=== PATIENT | female | born 1985 | race Hispanic/Latino ===

== ENCOUNTER 2021-04-04 11:01 | Emergency (ER) | payer BC ==
[~2021-04-04] VITALS: Ht 160 cm; Wt 108.9 kg
[2021-04-04 12:04] LABS: BASOPHILS # (AUTO) 0.1 (0.0-0.1); BASOPHILS % 0.9 % (0.0-1.0); EOSINOPHILS # (AUTO) 0.4 (0.0-0.4); EOSINOPHILS % 3.9 % (0.0-6.0); HEMOGLOBIN 13.7 g/dL (12.0-16.0); LYMPHOCYTES # (AUTO) 3.3 (1.0-3.2); LYMPHOCYTES % 32.8 % (18.0-39.1); MEAN CORPUSCULAR HGB CONC 30.4 g/dL (31-35); MONOCYTES # (AUTO) 0.4 (0.2-0.8); MONOCYTES % 4.3 % (4.4-11.3); NEUTROPHILS # (AUTO) 5.8 (2.1-6.9); NEUTROPHILS % 57.7 % (38.7-80.0); PLATELET COUNT 294 x10e3/uL (140-360); RED BLOOD COUNT 5.49 x10e6/uL (3.6-5.1); RED CELL DISTRIBUTION WIDTH 14.8 % (11.7-14.4)
[2021-04-04 12:27] LABS: INR 0.92
[2021-04-04 12:28] LABS: PARTIAL THROMBOPLASTIN TIME 23.5 seconds (23.8-35.5)
[2021-04-04 12:34] LABS: ALBUMIN 3.9 g/dL (3.5-5.0); ALBUMIN/GLOBULIN RATIO 0.8 (0.8-2.0); CALCIUM 9.3 mg/dL (8.4-10.2); CREATININE, SERUM 0.69 mg/dL (0.57-1.11)
[2021-04-04] MEDS ORDERED: SODIUM CHLORIDE 0.9% 100 ML ONE (13:21)
[2021-04-04] MEDS ORDERED: IOPAMIDOL 370 MG/ML 200 ML INFUS..BTL INJ ONE (13:21)
[2021-04-04] MEDS ORDERED: VENTOLIN HFA18 GM INH (14:39)
[2021-04-04] MEDS ORDERED: IBUPROFEN600 MG PO (14:39)
== END 2021-04-04 14:44 | disposition home or self-care (01) ==
LOC: ER 11:11
DX: R79.1 Abnormal coagulation profile (principal); R06.02 Shortness of breath; M79.89 Other specified soft tissue disorders
CPT/HCPCS: 36415; 71260; 80053; 84702; 85025; 85379; 85610; 85730; 93971; 99284; J7050; Q9967